=== PATIENT | female | born 1965 | race Asian ===

== ENCOUNTER 2022-05-28 08:34 | Outpatient (CLI) | payer BC, SELFPAY ==
[2022-05-28 13:44] LABS: Albumin* 4.4 g/dL (3.3-5.0); Chloride* 102 mmol/L (96-114); Sodium* 137 mmol/L (135-149)
[2022-05-28 13:46] LABS: Bilirubin Total* 0.6 mg/dL (0.1-1.5); Carbon Dioxide* 31 mmol/L (20-32); Cholesterol* 225 mg/dL (90-199); Creatinine* 0.5 mg/dL (0.5-1.5); Estimated Glomerular Filt Rate 111 ml/min; Total Protein* 7.3 g/dL (6.0-8.3)
[2022-05-28 13:47] LABS: Alanine Aminotransferase* 18 U/L (4-35); Alkaline Phosphatase* 73 U/L (40-150); Aspartate Amino Transferase* 32 U/L (12-35); Blood Urea Nitrogen* 13 mg/dL (7-30); Calcium* 8.9 mg/dL (8.4-10.6); Glucose* 85 mg/dL (60-115); HDL Cholesterol* 68 mg/dL (>=50); LDL Cholesterol Calculated 138 mg/dL (<100); Triglycerides* 97 mg/dL (40-149)
== END 2022-05-28 08:35 | disposition home or self-care (01) ==
PROVIDERS: PCP Physician Assistant Medical; Visit Provider Physician Assistant Medical
DX: E78.5 Hyperlipidemia, unspecified (principal)
CPT/HCPCS: 80053; 80061